=== PATIENT | male | born 1995 | race Caucasian/White ===

== ENCOUNTER 2022-10-17 19:00 | Emergency (ER) | payer BC, OTHER ==
[~2022-10-17] VITALS: Ht 177.8 cm; Wt 56.7 kg
[2022-10-17 19:24] LABS: BASOPHILS # (AUTO) 0.1 10^3/uL (0.0-0.1); BASOPHILS % (AUTO) 1 % (0-10); EOSINOPHILS % (AUTO) 0 % (0-10); HEMATOCRIT 42 % (40-54); HEMOGLOBIN 14.5 g/dL (13.3-17.7); LYMPHOCYTES # (AUTO) 2.5 10^3/uL (1.0-4.0); LYMPHOCYTES % (AUTO) 20 % (12-44); MEAN CORPUSCULAR HEMOGLOBIN 28 pg (25-34); MEAN CORPUSCULAR HGB CONC 34 g/dL (32-36); MEAN CORPUSCULAR VOLUME 83 fL (80-99); MEAN PLATELET VOLUME 9.7 fL (9.0-12.2); MONOCYTES # (AUTO) 0.8 10^3/uL (0.0-1.0); MONOCYTES % (AUTO) 7 % (0-12); NEUTROPHILS # (AUTO) 8.8 10^3/uL (1.8-7.8); NEUTROPHILS % (AUTO) 72 % (42-75); PLATELET COUNT 371 10^3/uL (130-400); WHITE BLOOD COUNT 12.2 10^3/uL (4.3-11.0)
[2022-10-17 19:30] LABS: CHLORIDE 103 MMOL/L (98-107); POTASSIUM 3.1 MMOL/L (3.6-5.0); SODIUM 137 MMOL/L (135-145)
[2022-10-17] MEDS ORDERED: LACTATED RINGERS 1,000 ML IV ONE (19:30)
[2022-10-17] MEDS ORDERED: ONDANSETRON 4 MG/2 ML (SDV) Z0FRAN IVP ONE (19:30)
[2022-10-17 19:31] LABS: CALCIUM 9.6 MG/DL (8.5-10.1)
[2022-10-17 19:32] LABS: GLUCOSE 139 MG/DL (70-105)
[2022-10-17 19:33] LABS: CARBON DIOXIDE 21 MMOL/L (21-32); TOTAL PROTEIN 7.9 GM/DL (6.4-8.2)
[2022-10-17 19:34] LABS: BILIRUBIN,TOTAL 1.2 MG/DL (0.1-1.0)
[2022-10-17 19:36] LABS: ALKALINE PHOSPHATASE 66 U/L (40-136); CREATININE SERUM 0.87 MG/DL (0.60-1.30); GFR ESTIMATED 123
[2022-10-17 19:37] LABS: BUN/CREATININE RATIO 16
[2022-10-17 19:39] LABS: ALANINE AMINOTRANSFERASE 25 U/L (0-55)
[2022-10-17 19:45] LABS: BILIRUBIN,URINE NEGATIVE (NEGATIVE); CLARITY,URINE CLEAR; COLOR,URINE YELLOW; GLUCOSE, URINE (UA) NEGATIVE (NEGATIVE); KETONES,URINE NEGATIVE (NEGATIVE); LEUKOCYTE ESTERASE ,URINE NEGATIVE (NEGATIVE); NITRITE,URINE NEGATIVE (NEGATIVE); PROTEIN,URINE NEGATIVE (NEGATIVE)
[2022-10-17 19:48] LABS: ERYTHROCYTE SEDIMENTATION RATE 4 MM/HR (0-15)
--- NOTE | 2022-10-17 19:52 | ED Headache ---
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 PAIN ON RIGHT SIDE AND IS "WORSE THAN NORMAL". PT STATES "CAN'T FOCUS". C/O BLURRED VISION. RATES PAIN 10\\10. 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 Source: patient History of Present Illness Date Seen by Provider: Oct 17, 2022 Time Seen by Provider: 19:10 Initial Comments PT ARRIVES VIA POV FROM HOME--FRIEND BROUGHT HIM HERE C/O MIGRAINE HEADACHE SINCE AROUND 0 TODAY PAIN BEGAN WHILE SITTING IN A VEHILE Allergies and Home Medications Allergies Coded Allergies: No Known Drug Allergies (Unverified , 07/16/16) Patient Home Medication List Butalb/Acetaminophen/Caffeine (Esgic 50-325-40 mg Tablet) 50 Mg-325 Mg-40 Mg Tablet, 1-2 EACH PO Q6 Prescribed by: DANNA KENT on 10/17/222035 Ondansetron (Ondansetron Odt) 4 Mg Tab.rapdis, 4 MG PO Q4H Prescribed by: DANNA KENT on 10/17/222035 Past Qxgcgro-Rthnwf-Yrgmch Hx Patient Social History Tobacco Use?: Yes Use of E-Cig and/or Vaping dev: Yes E-Cig or Vaping type used: Nicotine Substance use?: No Alcohol Use?: No Immunizations Up To Date Influenza Vaccine Up-to-Date: Yes; Up-to-Date Seasonal Allergies Seasonal Allergies: Yes Family Medical History No Pertinent Family Hx Physical Exam Vital Signs Vital Signs - First Documented 10/17/22 19:01 Pulse 120 Resp 16 B/P (MAP) 158/102 (120) Pulse Ox 100 Capillary Refill : Less Than 3 Seconds Height, Weight, BMI Height: 5'10" Weight: 135lbs. oz. [id number]; 17.00 BMI Method:Stated Progress/Results/Core Measures Results/Orders Lab Results Laboratory Tests Test 10/17/22 19:04 10/17/22 19:39 Range/Units White Blood Count 12.2 H 4.3-11.0 10^3/uL Red Blood Count 5.10 4.30-5.52 10^6/uL Hemoglobin 14.5 13.3-17.7 g/dL Hematocrit 42 40-54 % Mean Corpuscular Volume 83 80-99 fL Mean Corpuscular Hemoglobin 28 25-34 pg Mean Corpuscular Hemoglobin Concent 34 32-36 g/dL Red Cell Distribution Width 12.5 10.0-14.5 % Platelet Count 371 130-400 10^3/uL Mean Platelet Volume 9.7 9.0-12.2 fL Immature Granulocyte % (Auto) 0 % Neutrophils (%) (Auto) 72 42-75 % Lymphocytes (%) (Auto) 20 12-44 % Monocytes (%) (Auto) 7 0-12 % Eosinophils (%) (Auto) 0 0-10 % Basophils (%) (Auto) 1 0-10 % Neutrophils # (Auto) 8.8 H 1.8-7.8 10^3/uL Lymphocytes # (Auto) 2.5 1.0-4.0 10^3/uL Monocytes # (Auto) 0.8 0.0-1.0 10^3/uL Eosinophils # (Auto) 0.0 0.0-0.3 10^3/uL Basophils # (Auto) 0.1 0.0-0.1 10^3/uL Immature Granulocyte # (Auto) 0.0 0.0-0.1 10^3/uL Erythrocyte Sedimentation Rate 4 0-15 MM/HR Sodium Level 137 135-145 MMOL/L Potassium Level 3.1 L 3.6-5.0 MMOL/L Chloride Level 103 98-107 MMOL/L Carbon Dioxide Level 21 21-32 MMOL/L Anion Gap 13 5-14 MMOL/L Blood Urea Nitrogen 14 7-18 MG/DL Creatinine 0.87 0.60-1.30 MG/DL Estimat Glomerular Filtration Rate 123 BUN/Creatinine Ratio 16 Glucose Level 139 H 70-105 MG/DL Calcium Level 9.6 8.5-10.1 MG/DL Corrected Calcium 8.5-10.1 MG/DL Magnesium Level 2.0 1.6-2.4 MG/DL Total Bilirubin 1.2 H 0.1-1.0 MG/DL Aspartate Amino Transf (AST/SGOT) 19 5-34 U/L Alanine Aminotransferase (ALT/SGPT) 25 0-55 U/L Alkaline Phosphatase 66 40-136 U/L C-Reactive Protein High Sensitivity 0.06 0.00-0.50 MG/DL Total Protein 7.9 6.4-8.2 GM/DL Albumin 5.0 H 3.2-4.5 GM/DL Acetaminophen Level < 10 L 10-30 UG/ML Serum Alcohol < 10 <10 MG/DL Urine Color YELLOW Urine Clarity CLEAR Urine pH 6.0 5-9 Urine Specific Vale 1.020 1.016-1.022 Urine Protein NEGATIVE NEGATIVE Urine Glucose (UA) NEGATIVE NEGATIVE Urine Ketones NEGATIVE NEGATIVE Urine Nitrite NEGATIVE NEGATIVE Urine Bilirubin NEGATIVE NEGATIVE Urine Urobilinogen 0.2 < = 1.0 MG/DL Urine Leukocyte Esterase NEGATIVE NEGATIVE Urine RBC (Auto) NEGATIVE NEGATIVE Urine RBC NONE /HPF Urine WBC NONE /HPF Urine Squamous Epithelial Cells 2-5 /HPF Urine Crystals NONE /LPF Urine Bacteria NEGATIVE /HPF Urine Casts NONE /LPF Urine Mucus NEGATIVE /LPF Urine Culture Indicated NO Urine Opiates Screen NEGATIVE NEGATIVE Urine Oxycodone Screen NEGATIVE NEGATIVE Urine Methadone Screen NEGATIVE NEGATIVE Urine Propoxyphene Screen NEGATIVE NEGATIVE Urine Barbiturates Screen NEGATIVE NEGATIVE Ur Tricyclic Antidepressants Screen NEGATIVE NEGATIVE Urine Phencyclidine Screen NEGATIVE NEGATIVE Urine Amphetamines Screen NEGATIVE NEGATIVE Urine Methamphetamines Screen NEGATIVE NEGATIVE Urine Benzodiazepines Screen NEGATIVE NEGATIVE Urine Cocaine Screen NEGATIVE NEGATIVE Urine Cannabinoids Screen POSITIVE H NEGATIVE My Orders Orders - DANNA KENT DO Ed Iv/Invasive Line Start (10/17/22 19:17) Monitor-Rhythm Ecg Trace Only (10/17/22 19:17) Acetaminophen (10/17/22 19:17) Alcohol (10/17/22 19:17) Cbc With Automated Diff (10/17/22 19:17) Comprehensive Metabolic Panel (10/17/22 19:17) Hs C Reactive Protein (10/17/22 19:17) Drug Screen Stat (Urine) (10/17/22 19:17) Magnesium (10/17/22 19:17) Ua Culture If Indicated (10/17/22 19:17) Erythrocyte Sedimentation Rate (10/17/22 19:17) Ct Head/Maxillofacial Wo (10/17/22 19:17) Ed Iv/Invasive Line Start (10/17/22 19:17) Lactated Ringers (Lr 1000 Ml Iv Solution (10/17/22 19:30) Ondansetron Injection (Zofran Injectio (10/17/22 19:30) Ketorolac Injection (Toradol Injection) (10/17/22 20:15) Medications Given in ED Current Medications Medications Dose Ordered Sig/Tanja Route Start Time Stop Time Status Last Admin Dose Admin Ketorolac Tromethamine 30 mg ONCE ONCE IVP 10/17/22 20:15 10/17/22 20:16 DC 10/17/22 20:26 30 MG Lactated Ringer's 1,000 ml @ 0 mls/hr Q0M ONCE IV 10/17/22 19:30 10/17/22 19:31 DC 10/17/22 19:25 1,000 MLS/HR Ondansetron HCl 4 mg ONCE ONCE IVP 10/17/22 19:30 10/17/22 19:31 DC 10/17/22 19:25 4 MG Vital Signs/I&O 10/17/22 19:01 Pulse 120 Resp 16 B/P (MAP) 158/102 (120) Pulse Ox 100 Blood Pressure Mean: [address] HEAD---PER RADIOLOGIST REPORT AT 2000 COMPARISON: None available. FINDINGS: Head: No hyperdense hemorrhage or space-occupying mass. No hydrocephalus or midline shift. No evidence of territorial infarct. Basilar cisterns are patent. No focal scalp swelling. No skull fracture. The mastoid air cells are clear. Face: No fracture of the nasal bones, osseous nasal septum or anterior nasal spine. The orbits, zygomatic arches, maxillary sinus hunter, alveolar ridge of the maxilla and pterygoid plates are all intact. Normal alignment of the temporal mandibular joints. No acute mandibular fracture. Paranasal sinuses are clear. No globe rupture or retrobulbar hematoma. IMPRESSION: 1. No acute intracranial process or skull fracture. 2. No acute fracture in the mid face or mandible. Reviewed: Reviewed by Me Departure Impression Primary Impression: Migraine Additional Impression: Marijuana use Disposition: HOME, SELF-CARE Condition: Improved Departure-Patient Inst. Decision time for Depature: 20:35 Referrals: NO,LOCAL PHYSICIAN (PCP/Family) Primary Care Physician Patient Instructions: Marijuana Use and Addiction (DC), Migraines (DC) Add. Discharge Instructions: NO MARIJUANA HOME, REST LOTS OF CLEAR LIQUIDS--WATER, BROTH, JELLO, GATORADE TOMORROW IF YOU ARE FEELING BETTER, YOU MAY RESUME NORMAL DIET. FOLLOW UP WITH LOCAL DR OF CHOICE TO ESTABLISH MEDICAL CARE AND FOR FOLLOW UP OF THIS PROBLEM--CALL IN THE MORNING TO SCHEDULE AN APPOINTMENT. YOU ARE GIVEN A LIST OF LOCAL PROVIDERS All discharge instructions reviewed with patient and/or family. Voiced understanding. Scripts Ondansetron (Ondansetron Odt) 4 Mg Tab.rapdis 4 MG PO Q4H for Nausea/Vomiting, #10 TAB Prov: DANNA KENT DO 10/17/22 Butalb/Acetaminophen/Caffeine (Esgic 50-325-40 mg Tablet) 50 Mg-325 Mg-40 Mg Tablet 1-2 EACH PO Q6, #12 TAB Prov: ADNNA KENT DO 10/17/22 Work/School Note: Local Medical Staff Listing DANNA KENT DO Oct 17, 2022 19:52
[2022-10-17 19:56] LABS: BACTERIA,URINE NEGATIVE /HPF
--- NOTE | 2022-10-17 19:57 | Diagnostic Imaging Report ---
PROCEDURE: CT head, face, cervical spine without contrast. TECHNIQUE: Multiple contiguous axial images were obtained through the head, neck, and facial bones without the use of intravenous contrast. Sagittal and coronal reformations through the cervical spine and facial bones were also performed. All CT scans use one or more of the following dose optimizing techniques: automated exposure control, MA and/or KvP adjustment based on a patient size and exam type, or iterative reconstruction. INDICATION: Head and face trauma. COMPARISON: None available. FINDINGS: Head: No hyperdense hemorrhage or space-occupying mass. No hydrocephalus or midline shift. No evidence of territorial infarct. Basilar cisterns are patent. No focal scalp swelling. No skull fracture. The mastoid air cells are clear. Face: No fracture of the nasal bones, osseous nasal septum or anterior nasal spine. The orbits, zygomatic arches, maxillary sinus hunter, alveolar ridge of the maxilla and pterygoid plates are all intact. Normal alignment of the temporal mandibular joints. No acute mandibular fracture. Paranasal sinuses are clear. No globe rupture or retrobulbar hematoma. IMPRESSION: 1. No acute intracranial process or skull fracture. 2. No acute fracture in the mid face or mandible. Dictated by: Dictated on workstation # [id number]
[2022-10-17 19:58] LABS: AMPHETAMINE SCREEN, URINE NEGATIVE (NEGATIVE); BARBITURATE SCREEN URINE NEGATIVE (NEGATIVE); BENZODIAZEPINES SCREEN URINE NEGATIVE (NEGATIVE); CANNABINOID SCREEN, URINE POSITIVE (NEGATIVE); COCAINE SCREEN URINE NEGATIVE (NEGATIVE); METHADONE STAT NEGATIVE (NEGATIVE); OPIATE SCREEN URINE NEGATIVE (NEGATIVE); OXYCODONE STAT NEGATIVE (NEGATIVE); PROPOXYPHENE STAT NEGATIVE (NEGATIVE); TRICYCLIC ANTIDEPRESSANTS SCRE NEGATIVE (NEGATIVE)
[2022-10-17] MEDS ORDERED: KETOROLAC 30 MG/ML VIAL IVP ONE (20:15)
[2022-10-17] MEDS ORDERED: BUTA-249 PO (20:36)
[2022-10-17] MEDS ORDERED: ONDA4TAB11 PO (20:36)
[2022-10-17 21:22] VITALS: BP 130/79
== END 2022-10-17 21:23 | disposition home or self-care (01) ==
LOC: EDUNIT# 19:00 → ER 19:01
DX: G43.909 Migraine, unspecified, not intractable, without status migrainosus (principal); F12.90 Cannabis use, unspecified, uncomplicated; F17.290 Nicotine dependence, other tobacco product, uncomplicated; Z28.310 Unvaccinated for COVID-19
CPT/HCPCS: 70450; 70486; 80053; 80306; 81000; 83735; 85025; 85652; 86141; 93041; G0480 ×2; 36415; 80320; 80329

== ENCOUNTER → 2022-11-01 | Outpatient (CLI) | payer OTHER ==
[~2022-11-01] MED LIST: BUTA-249 PO; ONDA4TAB11 PO
--- NOTE | 2022-11-01 15:17 | Diagnostic Imaging Report ---
PROCEDURE: MR imaging of the brain without contrast. TECHNIQUE: Multiplanar, multisequence MR imaging of the brain was performed without contrast. INDICATION: Right eye pain. COMPARISON: CT of the head on 10/17/2022. FINDINGS: No acute infarct. No acute or chronic intracranial hemorrhage. Flow voids are normal. The paranasal sinuses and mastoids are clear. The globes and orbits are normal. The ventricles and cortical sulci are normal. No intracranial mass or fluid collection. No midline shift. The midline craniocervical anatomy is normal. No Chiari malformation. The sella and pituitary gland are normal. No marrow replacement process. IMPRESSION: No acute infarct, intracranial hemorrhage, mass, or hydrocephalus. No Chiari malformation. No apparent abnormalities in the orbits. Dictated by: Dictated on workstation # [id number]
== END ==
LOC: RAD 13:59
PROVIDERS: ATTEND Nurse Practitioner Family
DX: H57.11 Ocular pain, right eye (principal)
CPT/HCPCS: 70551